=== PATIENT | male | born 1970 | race Caucasian/White ===

== ENCOUNTER → 2017-09-14 10:15 | Outpatient (CLI) | payer OTHER, SELFPAY ==
--- NOTE | 2017-09-14 10:28 | EKG12_ITS ---
Test Reason : PRE-OP Blood Pressure : / mmHG Vent. Rate : 087 BPM Atrial Rate : 087 BPM P-R Int : 124 ms QRS Dur : 088 ms QT Int : 348 ms P-R-T Axes : 013 039 038 degrees QTc Int : 418 ms Normal sinus rhythm Low voltage QRS (limb leads) Confirmed by CHAPARRO RAYMUNDO, VENKAT ([id number]), scientific editor MATT ROGEL ([id number]) on 09/15/2017 11:02:59 AM Referred By: Jonathon Díaz Confirmed By:VENKAT MAYFIELD MD
[2017-09-14 10:43] LABS: Hematocrit 46.3 % (40-54); Hemoglobin 16.1 g/dl (13.0-16.5); Mean Corp Hgb Conc 34.8 g/gl (32-36); Mean Corpuscular Volume 94.9 fL (80-94); Mean Platelet Vol. 10.6 fl (6.2-12.0); Platelet Count 235 K/mm3 (150-450); RBC Distribution Width CV 12.3 % (11.6-14.6); RBC Distribution Width SD 42.5 fl (35.1-43.9); Red Blood Count 4.88 M/mm3 (4.6-6.2); White Blood Count 8.4 K/mm3 (4.4-11.0)
[2017-09-14 10:44] LABS: Scan Indicated on CBC? Y/N NO
[2017-09-14 11:28] LABS: Anion Gap 6 (5-15); BUN 11 mg/dL (7-18); BUN/Creat Ratio 10.5 RATIO (10-20); Calcium,Total 8.9 mg/dL (8.5-10.1); Chloride 101 mmol/L (98-107); Creatinine, Serum 1.05 mg/dL (0.70-1.30); EST Glomerular Filtration Rate 81 mL/min (>60); Est Glom Filt Rate - Afr Amer 98 mL/min (>60); Glucose 111 mg/dL (74-106); Potassium 4.1 mmol/L (3.5-5.1); Sodium Level 137 mmol/L (136-145)
== END ==
PROVIDERS: Visit Provider Physician Assistant
DX: Z01.818 Encounter for other preprocedural examination (principal); I10 Essential (primary) hypertension
CPT/HCPCS: 36415; 80048; 85027; 93005

== ENCOUNTER → 2017-10-24 15:15 | Outpatient (CLI) | payer OTHER, SELFPAY ==
[2017-10-24 16:07] LABS: Absolute Lymphocyte Count 2.03 X10^3/ul (0.83-4.51); Absolute Neutrophil Count 5.9 X10^3/uL (2.0-7.7); Basophil# 0.03 X10^3/uL; Basophil% 0.3 % (0-1); Eosinophils% 1.1 % (0-5); Hematocrit 46.1 % (40-54); Hemoglobin 15.9 g/dl (13.0-16.5); Lymphocyte # 2.03 X10^3/ul (4.0); Lymphocyte % 23.1 % (19-41); Mean Corp Hgb Conc 34.5 g/gl (32-36); Mean Corpuscular Hgb 32.8 pg (27.0-32.0); Mean Corpuscular Volume 95.1 fL (80-94); Mean Platelet Vol. 10.3 fl (6.2-12.0); Monocyte# 0.72 X10^3/uL; Monocyte% 8.2 % (0-10); Neutrophil # 5.88 X10^3/uL (2.7-7.7); Platelet Count 238 K/mm3 (150-450); RBC Distribution Width CV 12.1 % (11.6-14.6); RBC Distribution Width SD 41.9 fl (35.1-43.9); Red Blood Count 4.85 M/mm3 (4.6-6.2); White Blood Count 8.8 K/mm3 (4.4-11.0)
[2017-10-24 16:08] LABS: POSITIVE COUNT NO; POSITIVE DIFFERENTIAL NO; POSITIVE MORPHOLOGY NO
[2017-10-24 16:26] LABS: Anion Gap 8 (5-15); BUN 11 mg/dL (7-18); Calcium,Total 8.8 mg/dL (8.5-10.1); Chloride 99 mmol/L (98-107); EST Glomerular Filtration Rate 77 mL/min (>60); Est Glom Filt Rate - Afr Amer 93 mL/min (>60); Glucose 96 mg/dL (74-106); Potassium 4.1 mmol/L (3.5-5.1); Sodium Level 135 mmol/L (136-145)
== END ==
PROVIDERS: Family Provider Family Medicine; PCP Family Medicine; Visit Provider Orthopaedic Surgery
DX: Z01.818 Encounter for other preprocedural examination (principal); I10 Essential (primary) hypertension
CPT/HCPCS: 36415; 80048; 85025

== ENCOUNTER 2018-07-17 18:29 | Emergency (ER) | payer SELFPAY ==
[2018-07-17 18:30] VITALS: BP 110/80; PULSE 241; RESP 24; TEMP 36; O2SAT 97; BMI 32.3
--- NOTE | 2018-07-17 18:33 | ED.RN ---
RN CALLED FOR EKG, PULLED OLD EKGS FOR DR STRINGER
[2018-07-17] MEDS: Adenosine 6 MG/2 ML Syringe IV (18:37)
--- NOTE | 2018-07-17 18:37 | EKG12_ITS ---
Test Reason : POST CARDIOVERSION Blood Pressure : / mmHG Vent. Rate : 148 BPM Atrial Rate : 131 BPM P-R Int : 128 ms QRS Dur : 088 ms QT Int : 278 ms P-R-T Axes : 017 077 034 degrees QTc Int : 436 ms Narrow QRS Tachycardia and SInus Rhythm Otherwise normal ECG Confirmed by JANNETH RAYMUNDO, MASON ([id number]), sports editor MATT ROGEL ([id number]) on 07/19/2018 3:52:16 PM Referred By: DR STRINGER Confirmed By:MASON LAGUNAS MD
[2018-07-17 18:40] VITALS: BP 110/80; PULSE 138; RESP 16; O2SAT 98
--- NOTE | 2018-07-17 18:40 | RAD_ITS ---
STUDY: X-RAY CHEST REASON FOR EXAM: Male, 48 years old. Chest pain substernally. TECHNIQUE: Single frontal view of the chest. COMPARISON: None. FINDINGS: The lungs are clear and expanded. There is no demonstrated pleural abnormality. Normal size heart. Normal mediastinum and paradise. Normal visualized pulmonary arteries. Normal visualized aortic arch and descending thoracic aorta. Normal visualized thoracic spine. Normal visualized ribs, clavicles, and shoulders. There is no demonstrated abnormality of the visualized soft tissue structures of the upper abdomen. RAD/Chest 1 View (Portable) IMPRESSION: Normal x-ray examination of the chest. Electronically Signed: Jonathon Trujillo MD at 20:07 EDT , Service support ,
--- NOTE | 2018-07-17 18:41 | EKG12_ITS ---
Test Reason : CP Blood Pressure : / mmHG Vent. Rate : 244 BPM Atrial Rate : 048 BPM P-R Int : 000 ms QRS Dur : 192 ms QT Int : 188 ms P-R-T Axes : 000 105 000 degrees QTc Int : 378 ms Narrow QRS Tachycardia Abnormal ECG Confirmed by AJNNETH RAYMUNDO, MASON ([id number]), international editorial producer MAGI STEPHEN ([id number]) on 07/19/2018 1:04:54 PM Referred By: DR STRINGER Confirmed By:MASON LAGUNAS MD
--- NOTE | 2018-07-17 18:42 | ED.VISSUMM ---
- ER Visit Summary Date of Service: 07/17/18 Chief Complaint: Elevated heart rate. History of Present Illness: The patient is a 48 M history of hypertension. No other history of cardiac disease. Says less than an hour ago he felt like his heart began racing he felt anxious. He is never had a history of an SVT or cardiac dysrhythmia. No history of coronary disease. He really denies chest pain just feels like his heart is beating very fast in his chest. [place] mildly lightheaded did not pass out. Denies any recent illness. Physical Examination: Nourished male. Initial heart rates to 43. HEENT exam unremarkable. Neck nontender. No lymphadenopathy. No thyromegaly. Lungs clear to auscultation bilaterally. Heart tachycardic rate in the 240s no appreciable murmur. SVT on monitor. Abdomen soft nontender. Normal bowel sounds no peritoneal signs. Extremities moves all 4. Calves nontender without edema or cords. Neurologically is awake and alert with no focal motor deficits. Test Results: One view chest x-ray shows normal cardiac silhouette normal mediastinum no acute abnormality read by myself. Initial EKG showed SVT with a heart rate of 244 with no signs of ischemia. Patient was given 6 mg adenosine the rhythm broke and his second EKG showed a sinus tachycardia rate of 128 with again no signs of ID nor ischemia. CBC normal hemoglobin 15. Chemistries normal normal creatinine and gap. TSH normal 1.5 and troponin normal. Emergency Department Course and Treatment: Patient appears to have an SVT. Was treated with 6 mg IV Identicard and is now in a sinus rhythm at 110. Treatment Plan: Repeat exam at 1940 patient doing well. Currently his heart rate is 105. He feels well. He is having no chest pain. I explained to him his diagnosis and the follow-up with cardiology both he and his are comfortable being discharged home. Disposition: Discharge Impression: Acute newly diagnosed SVT This note was generated with [employer] dictation software. It may contain incorrect words, spelling, and punctuation that were not noted in review of the chart prior to signing ED Disposition - Plan for ED Patient: Referrals: Umberto Louis DO [Primary Care Provider] -
--- NOTE | 2018-07-17 18:46 | ED.DCSUM_ITS ---
- ER Visit Summary Date of Service: 07/17/18 Chief Complaint: Elevated heart rate. History of Present Illness: The patient is a 48 M history of hypertension. No other history of cardiac disease. Says less than an hour ago he felt like his heart began racing he felt anxious. He is never had a history of an SVT or cardiac dysrhythmia. No history of coronary disease. He really denies chest pain just feels like his heart is beating very fast in his chest. [place] mildly lightheaded did not pass out. Denies any recent illness. Physical Examination: Nourished male. Initial heart rates to 43. HEENT exam unremarkable. Neck nontender. No lymphadenopathy. No thyromegaly. Lungs clear to auscultation bilaterally. Heart tachycardic rate in the 240s no appreciable murmur. SVT on monitor. Abdomen soft nontender. Normal bowel sounds no peritoneal signs. Extremities moves all 4. Calves nontender without edema or cords. Neurologically is awake and alert with no focal motor deficits. Test Results: One view chest x-ray shows normal cardiac silhouette normal mediastinum no acute abnormality read by myself. Initial EKG showed SVT with a heart rate of 244 with no signs of ischemia. Patient was given 6 mg adenosine the rhythm broke and his second EKG showed a sinus tachycardia rate of 128 with again no signs of IN nor ischemia. CBC normal hemoglobin 15. Chemistries normal normal creatinine and gap. TSH normal 1.5 and troponin normal. Emergency Department Course and Treatment: Patient appears to have an SVT. Was treated with 6 mg IV Identicard and is now in a sinus rhythm at 110. Treatment Plan: Repeat exam at 1940 patient doing well. Currently his heart rate is 105. He feels well. He is having no chest pain. I explained to him his diagnosis and the follow-up with cardiology both he and his are comfortable being discharged home. Disposition: Discharge Impression: Acute newly diagnosed SVT This note was generated with [employer] dictation software. It may contain incorrect words, spelling, and punctuation that were not noted in review of the chart prior to signing ED Disposition - Plan for ED Patient: Referrals: Umberto Louis DO [Primary Care Provider] -
[2018-07-17 18:50] LABS: Absolute Lymphocyte Count 4.67 X10^3/ul (0.83-4.51); Absolute Neutrophil Count 5.1 X10^3/uL (2.0-7.7); Basophil# 0.05 X10^3/uL; Basophil% 0.5 % (0-1); Eosinophil# 0.15 X10^3/uL; Eosinophils% 1.4 % (0-5); Hematocrit 45.4 % (40-54); Hemoglobin 15.6 g/dl (13.0-16.5); Lymphocyte # 4.67 X10^3/ul (4.0); Lymphocyte % 43.3 % (19-41); Mean Corp Hgb Conc 34.4 g/gl (32-36); Mean Corpuscular Hgb 31.5 pg (27.0-32.0); Mean Corpuscular Volume 91.5 fL (80-94); Mean Platelet Vol. 10.6 fl (6.2-12.0); Monocyte# 0.74 X10^3/uL; Monocyte% 6.9 % (0-10); Neutrophil # 5.13 X10^3/uL (2.7-7.7); Neutrophil % 47.4 % (47-70); Platelet Count 359 K/mm3 (150-450); RBC Distribution Width CV 12.5 % (11.6-14.6); RBC Distribution Width SD 40.7 fl (35.1-43.9); Red Blood Count 4.96 M/mm3 (4.6-6.2); White Blood Count 10.8 K/mm3 (4.4-11.0)
[2018-07-17 18:52] LABS: POSITIVE COUNT NO; POSITIVE DIFFERENTIAL NO; POSITIVE MORPHOLOGY NO
--- NOTE | 2018-07-17 18:54 | EKG12_ITS ---
Test Reason : POST CARDIOVERSION Blood Pressure : / mmHG Vent. Rate : 128 BPM Atrial Rate : 128 BPM P-R Int : 134 ms QRS Dur : 080 ms QT Int : 274 ms P-R-T Axes : 056 089 031 degrees QTc Int : 400 ms Sinus tachycardia Otherwise normal ECG Confirmed by JANNETH RAYMUNDO, MASON ([id number]), fan mail editor MAGI STEPHEN ([id number]) on 07/19/2018 1:04:16 PM Referred By: DR STRINGER Confirmed By:MASON LAGUNAS MD
[2018-07-17 19:07] LABS: Anion Gap 10 (5-15); BUN 17 mg/dL (7-18); BUN/Creat Ratio 14.9 RATIO (10-20); Chloride 105 mmol/L (98-107); Creatinine, Serum 1.14 mg/dL (0.70-1.30); EST Glomerular Filtration Rate 74 mL/min (>60); Est Glom Filt Rate - Afr Amer 89 mL/min (>60); Estimated Creatinine Clearance 80.97 ml/min; Glucose 171 mg/dL (74-106); Sodium Level 138 mmol/L (136-145); Thyroid Stim Hormone (TSH) 1.58 uIU/mL (0.358-3.74)
[2018-07-17 19:28] VITALS: BP 123/84; PULSE 110; RESP 18; O2SAT 97
[2018-07-17 19:40] VITALS: BP 134/87; PULSE 109; RESP 16; O2SAT 98
--- NOTE | 2018-07-17 19:51 | DCINST.ED_ITS ---
ED Disposition - Plan for ED Patient: Disposition: Home or Assisted Living Instructions: ED Tachycardia Pat PSVT Referrals: Minor Alvarez MD [STAFF PHYSICIAN] - As soon as possible Additional Instructions: Follow-up with assistant teacher as soon as possible. They can discuss with you options such as medications or following up with a EP assistant teacher that could map out the electrical cause of this rhythm and ablate it.
[2018-07-17 19:55] VITALS: BP 114/84; PULSE 110; RESP 20; O2SAT 96
== END 2018-07-17 19:55 | disposition home or self-care (01) ==
PROVIDERS: Emergency Provider Emergency Medicine; Family Provider Family Medicine; PCP Family Medicine
DX: I47.1 Supraventricular tachycardia (principal); I10 Essential (primary) hypertension; Z72.0 Tobacco use; Z79.899 Other long term (current) drug therapy
CPT/HCPCS: 71045; 80048; 84443; 84484; 85025; 93005; 96374; 99284; J7030; J0153